=== PATIENT | male | born 1990 | race Caucasian/White ===

== ENCOUNTER 2018-08-25 18:13 | Emergency (ER) | payer OTHER ==
[~2018-08-25] VITALS: Ht 177.8 cm; Wt 86.2 kg
== END 2018-08-25 21:35 | disposition home or self-care (01) ==
LOC: ER 18:13
DX: N48.89 Other specified disorders of penis (principal)

== ENCOUNTER → 2019-06-03 17:51 | Outpatient (CLI) | payer OTHER | END | disposition home or self-care (01) | LOC: RAD 17:51 | DX: M79.645 Pain in left finger(s) (principal) ==